=== PATIENT | male | born 1980 | race Caucasian/White ===

== ENCOUNTER → 2017-08-20 | Outpatient (CLI) | payer OTHER ==
--- NOTE | 2017-08-24 07:40 | SLEEP ---
[address] [address] SLEEP STUDY REPORT Name: ZIA AQUINO Room: [facility]#: [id number] Admission: 08/20/17 Attend Phys: Regan Cartagena DO Discharge: Date of : 78 Report #: [id number] THIS REPORT FOR: //name// CC: Regan Cartagena This study has been reviewed in its entirety by a board certified sleep specialist REFERRING PHYSICIAN: Regan Cartagena DO TYPE OF STUDY: Split night sleep study, diagnostic portion and titration portion. INDICATION FOR THE STUDY: Snoring, hypersomnia, and the patient's Charlotte sleepiness score is 11. The following parameters were monitored: Frontal, central and occipital EEG; electro-oculogram, submentalis EMG, nasal and oral airflow, anterior tibialis EMG, body position and electrocardiogram. Additionally, thoracic and abdominal movements were recorded by inductance plethysmography. Oxygen saturation was monitored using pulse oximeter. The tracing was scored using 30-second epochs. Hypopneas were scored with the [employer] definition using the 4% desaturation criteria. This was a split night study. DIAGNOSTIC PORTION OF THE STUDY: Total recording time 119.3 minutes. Total sleep time 103 minutes. Sleep efficiency was 86.3%. SLEEP STAGING: During the diagnostic portion of the study, stage N1 was 15% of total sleep time, stage N2 was 84% of total sleep time, stage REM none, stage N3 was 1% of total sleep time. During the diagnostic portion of the study, the patient had 62 hypopneas and 10 apneas with a total of 72 episodes with apnea-hypopnea index of 41.9 per hour. These episodes were noted in both supine and lateral positions. The patient had significant desaturation during the study. His average O2 saturation was 91%, but he had desaturation severe to a keyonna of 50% associated with respiratory events. Snoring was recorded also during the study. Average heart rate in diagnostic portion of the study was 85 beats per minute. During the CPAP portion of the study, the patient was titrated on a CPAP pressure starting from 6 cm of water to 20 cm of water. The patient at 20 cm of water was captured for 29 minutes of sleep, although it was non-REM sleep. At level of 19 cm of water, the patient slept for 102.6 minutes and he was captured for 60 minutes in supine REM sleep. At this level of pressure, the apnea-hypopnea index was 8.8 with a minimum O2 saturation of 87%. [place] [address] SLEEP STUDY REPORT Name: ZIA AQUINO Room: [facility]#: [id number] Admission: 08/20/17 Attend Phys: Regan Cartagena DO Discharge: Date of : 78 Report #: [id number] 20 cm of water, supine REM sleep apnea-hypopnea index was 4.1 and the lowest O2 saturation was 88%. IMPRESSION: 1. Severe obstructive sleep apnea in both supine and lateral position with apnea-hypopnea index of 41.9 per hour and severe oxygen desaturation to 50%. 2. The actual apnea-hypopnea index could be higher due to lack of REM sleep during the diagnostic portion of the study. RECOMMENDATIONS: 1. A trial of CPAP therapy at a pressure of 20 cm of water. 2. Close clinical followup and data download monitoring. 3. Consider overnight oximetry on the CPAP on room air to determine the need for oxygen. 4. Avoid driving or operating machinery while sleepy. 5. Avoid alcohol, sedatives, hypnotics close to bedtime. <ELECTRONICALLY SIGNED> By: Marielena Olivo MD 08/24/17 0740 1221 [id number] Us MD /nt
== END ==
LOC: M.SLEEPLAB 08-19 20:00
DX: G47.33 Obstructive sleep apnea (adult) (pediatric) (principal); R06.83 Snoring; Z87.891 Personal history of nicotine dependence; Z98.890 Other specified postprocedural states